=== PATIENT | male | born 1945 | race Caucasian/White ===

== ENCOUNTER → 2019-04-17 09:53 | Outpatient (CLI) | payer MEDICARE, OTHER, SELFPAY ==
[2019-04-17 10:48] LABS: Add Manual Diff / Slide Review NO; Basophils Absolute Auto 0 /uL (0-100); Basophils Percent Auto 0.7 % (0-2); Eosinophils Absolute Auto 100 /uL (0-450); Eosinophils Percent Auto 1.3 % (2-4); Hematocrit 45.6 % (41-53); Hemoglobin 15.2 g/dL (13.5-17.5); Lymphocytes Absolute Auto 1800 /uL (1100-4500); Lymphocytes Percent Auto 31.5 % (25-40); Mean Corpuscular HGB Conc 33.5 % (30-36); Mean Corpuscular Hemoglobin 30.8 PG (26-34); Mean Corpuscular Volume 91.9 fL (80-100); Monocytes Absolute Auto 600 /uL (0-900); Monocytes Percent Auto 10.2 % (3-14); Neutrophils Absolute Auto 3200 /uL (1500-7000); Neutrophils Percent Auto 56.3 % (50-75); Platelet Count 237 X10^3/uL (150-400); Red Blood Cell Count 4.95 X10^6/uL (4.5-5.9); Red Cell Distribution Width 13.8 % (11.6-14.8); White Blood Cell Count 5.7 X10^3/uL (4.5-11.0)
[2019-04-17 11:46] LABS: Alanine Aminotransferase 32 IU/L (21-72); Albumin 4.4 g/dL (3.5-5.0); Albumin Globulin Ratio 1.3 (1.0-2.8); Alkaline Phosphatase 53 U/L (38-126); Aspartate Aminotransferase 29 IU/L (17-59); BUN Creatinine Ratio 32.9 (6-22); Bilirubin Total 0.6 mg/dL (0.2-1.3); Blood Urea Nitrogen 23 mg/dL (9-20); Carbon Dioxide 32 mmol/L (22-32); Chloride 98 mmol/L (98-107); Cholesterol 157 mg/dL (140-199); Estimated Glomerular Filt Rate > 60.0 mL/min (>60); Globulin 3.5 g/dL (1.7-4.1); Glucose 97 mg/dL (80-110); HDL Cholesterol 39 mg/dL (40-60); HEMOLYSIS < 15 (0-50); LDL Cholesterol Calculated 104 mg/dL (<100); Potassium 4.6 mmol/L (3.4-5.1); Sodium 139 mmol/L (137-145); Total Protein 7.9 g/dL (6.3-8.2); Triglycerides 72 mg/dL (35-150)
[2019-04-17 12:09] LABS: Thyroid Stimulating Hormone 2.17 uIU/mL (0.47-4.68)
[2019-04-17 12:13] LABS: Prostate Specific Antigen Scrn 1.48 ng/mL (0.1-4.0)
== END ==
PROVIDERS: PCP Family Medicine; Visit Provider Family Medicine
DX: E78.2 Mixed hyperlipidemia (principal); Z12.5 Encounter for screening for malignant neoplasm of prostate
CPT/HCPCS: 36415; 80053; 80061; 84443; 85025; G0103

== ENCOUNTER → 2020-12-19 11:22 | Outpatient (CLI) | payer MEDICARE, OTHER, SELFPAY ==
[2020-12-19 11:52] LABS: Add Manual Diff / Slide Review NO; Basophils Absolute Auto 0 /uL (0-100); Basophils Percent Auto 0.6 % (0-2); Eosinophils Absolute Auto 100 /uL (0-450); Eosinophils Percent Auto 1.3 % (2-4); Hematocrit 42.8 % (41-53); Hemoglobin 14.5 g/dL (13.5-17.5); Lymphocytes Absolute Auto 1800 /uL (1100-4500); Lymphocytes Percent Auto 27.7 % (25-40); Mean Corpuscular HGB Conc 33.9 % (30-36); Mean Corpuscular Hemoglobin 30.9 PG (26-34); Mean Corpuscular Volume 91.1 fL (80-100); Monocytes Absolute Auto 600 /uL (0-900); Monocytes Percent Auto 9.8 % (3-14); Neutrophils Absolute Auto 3900 /uL (1500-7000); Neutrophils Percent Auto 60.6 % (50-75); Platelet Count 253 X10^3/uL (150-400); Red Blood Cell Count 4.69 X10^6/uL (4.5-5.9); White Blood Cell Count 6.5 X10^3/uL (4.5-11.0)
[2020-12-19 12:06] LABS: Alanine Aminotransferase 24 IU/L (<50); Albumin 4.2 g/dL (3.5-5.0); Albumin Globulin Ratio 1.4 (1.0-2.8); Alkaline Phosphatase 51 U/L (38-126); Aspartate Aminotransferase 27 IU/L (17-59); BUN Creatinine Ratio 27.8 (6-22); Bilirubin Total 0.3 mg/dL (0.2-1.3); Blood Urea Nitrogen 20 mg/dL (9-20); Carbon Dioxide 33 mmol/L (22-32); Chloride 99 mmol/L (98-107); Cholesterol 158 mg/dL (140-199); Estimated Glomerular Filt Rate > 60.0 mL/min (>60); Globulin 2.9 g/dL (1.7-4.1); Glucose 98 mg/dL (80-110); HDL Cholesterol 40 mg/dL (40-60); LDL Cholesterol Calculated 105 mg/dL (<100); Potassium 4.3 mmol/L (3.4-5.1); Sodium 139 mmol/L (137-145); Total Protein 7.1 g/dL (6.3-8.2); Triglycerides 64 mg/dL (35-150)
[2020-12-19 12:08] LABS: Creatinine Urine Random 73.4 mg/dL
[2020-12-19 12:34] LABS: Microalbumin Urine Random < 0.6 mg/dL (0-1.6)
[2020-12-19 12:52] LABS: HEMOLYSIS < 15 (0-50)
== END ==
PROVIDERS: PCP Family Medicine; Referring Provider Family Medicine; Visit Provider Family Medicine
DX: E78.2 Mixed hyperlipidemia (principal); I10 Essential (primary) hypertension; Z12.5 Encounter for screening for malignant neoplasm of prostate
CPT/HCPCS: 36415; 80053; 80061; 82043; 82570; 85025; G0103

== ENCOUNTER → 2022-08-19 09:06 | Outpatient (CLI) | payer MEDICARE, OTHER, SELFPAY ==
[2022-08-19 10:07] LABS: Add Manual Diff / Slide Review NO; Basophils Absolute Auto 0 /uL (0-100); Basophils Percent Auto 0.6 % (0-2); Eosinophils Absolute Auto 100 /uL (0-450); Hematocrit 42.9 % (41-53); Hemoglobin 14.4 g/dL (13.5-17.5); Lymphocytes Absolute Auto 1900 /uL (1100-4500); Lymphocytes Percent Auto 29.3 % (25-40); Mean Corpuscular HGB Conc 33.6 % (30-36); Mean Corpuscular Hemoglobin 30.5 PG (26-34); Mean Corpuscular Volume 90.7 fL (80-100); Monocytes Absolute Auto 700 /uL (0-900); Monocytes Percent Auto 10.4 % (3-14); Neutrophils Absolute Auto 3700 /uL (1500-7000); Neutrophils Percent Auto 58.7 % (50-75); Platelet Count 263 X10^3/uL (150-400); Red Blood Cell Count 4.72 X10^6/uL (4.5-5.9); Red Cell Distribution Width 13.7 % (11.6-14.8); White Blood Cell Count 6.3 X10^3/uL (4.5-11.0)
[2022-08-19 10:38] LABS: Creatinine Urine Random 75.2 mg/dL
[2022-08-19 10:39] LABS: Alanine Aminotransferase 30 IU/L (<50); Albumin 4.4 g/dL (3.5-5.0); Albumin Globulin Ratio 1.4 (1.0-2.8); Alkaline Phosphatase 72 U/L (38-126); Aspartate Aminotransferase 32 IU/L (17-59); Bilirubin Total 0.7 mg/dL (0.2-1.3); Blood Urea Nitrogen 24 mg/dL (9-20); Calcium 9.6 mg/dL (8.4-10.2); Carbon Dioxide 27 mmol/L (22-32); Chloride 97 mmol/L (98-107); Cholesterol 163 mg/dL (140-199); Estimated Glomerular Filt Rate > 60 mL/min (>60); Globulin 3.2 g/dL (1.7-4.1); Glucose 92 mg/dL (80-110); HDL Cholesterol 40 mg/dL (40-60); HEMOLYSIS < 15 (0-50); LDL Cholesterol Calculated 112 mg/dL (<100); Potassium 4.1 mmol/L (3.4-5.1); Sodium 136 mmol/L (137-145); Total Protein 7.6 g/dL (6.3-8.2); Triglycerides 57 mg/dL (35-150)
[2022-08-19 10:40] LABS: Microalbumin Urine Random < 0.6 mg/dL (0-1.6)
== END ==
PROVIDERS: PCP Family Medicine; Referring Provider Family Medicine; Visit Provider Family Medicine
DX: E78.2 Mixed hyperlipidemia (principal); Z12.5 Encounter for screening for malignant neoplasm of prostate; I10 Essential (primary) hypertension
CPT/HCPCS: 36415; 80053; 80061; 82043; 82570; 84443; 85025; G0103

== ENCOUNTER → 2024-01-03 09:33 | Outpatient (CLI) | payer MEDICARE, OTHER, SELFPAY ==
[2024-01-03 10:25] LABS: Add Manual Diff / Slide Review NO; Basophils Absolute Auto 0 /uL (0-100); Basophils Percent Auto 0.5 % (0-2); Eosinophils Absolute Auto 100 /uL (0-450); Eosinophils Percent Auto 1.3 % (2-4); Hematocrit 41.9 % (41-53); Hemoglobin 14.4 g/dL (13.5-17.5); Lymphocytes Absolute Auto 1600 /uL (1100-4500); Lymphocytes Percent Auto 26.3 % (25-40); Mean Corpuscular HGB Conc 34.3 % (30-36); Mean Corpuscular Hemoglobin 31.1 PG (26-34); Mean Corpuscular Volume 90.7 fL (80-100); Monocytes Absolute Auto 600 /uL (0-900); Monocytes Percent Auto 9.6 % (3-14); Neutrophils Absolute Auto 3800 /uL (1500-7000); Neutrophils Percent Auto 62.3 % (50-75); Platelet Count 274 X10^3/uL (150-400); Red Blood Cell Count 4.62 X10^6/uL (4.5-5.9); White Blood Cell Count 6.1 X10^3/uL (4.5-11.0)
[2024-01-03 10:39] LABS: Alanine Aminotransferase 25 IU/L (<50); Albumin 4.4 g/dL (3.5-5.0); Albumin Globulin Ratio 1.5 (1.0-2.8); Alkaline Phosphatase 58 U/L (38-126); Aspartate Aminotransferase 28 IU/L (17-59); BUN Creatinine Ratio 25.6 (6-22); Bilirubin Total 0.7 mg/dL (0.2-1.3); Blood Urea Nitrogen 20 mg/dL (9-20); Calcium 9.4 mg/dL (8.4-10.2); Carbon Dioxide 32 mmol/L (22-32); Chloride 103 mmol/L (98-107); Cholesterol 144 mg/dL (140-199); Estimated Glomerular Filt Rate > 60 mL/min (>60); Globulin 2.9 g/dL (1.7-4.1); Glucose 100 mg/dL (80-110); HDL Cholesterol 34 mg/dL (40-60); HEMOLYSIS < 15 (0-50); LDL Cholesterol Calculated 95 mg/dL (<100); Potassium 4.1 mmol/L (3.4-5.1); Sodium 138 mmol/L (137-145); Total Protein 7.3 g/dL (6.3-8.2); Triglycerides 74 mg/dL (35-150)
[2024-01-03 11:08] LABS: Prostate Specific Antigen Scrn 1.89 ng/mL (0.1-4.0)
[2024-01-03 11:21] LABS: TSH w/ Reflex to FT4 1.63 uIU/mL (0.47-4.68)
[2024-01-03 12:07] LABS: Creatinine Urine Random 120.9 mg/dL
[2024-01-03 12:11] LABS: Microalbumin Urine Random < 0.6 mg/dL (0-1.6)
[2024-01-04 07:35] LABS: Apolipoprotein B 80 mg/dL (<90)
== END ==
PROVIDERS: PCP Family Medicine; Referring Provider Family Medicine; Visit Provider Family Medicine
DX: Z12.5 Encounter for screening for malignant neoplasm of prostate (principal); Z00.00 Encounter for general adult medical examination without abnormal findings; E78.2 Mixed hyperlipidemia; I10 Essential (primary) hypertension
CPT/HCPCS: 36415; 80053; 80061; 82043; 82172; 82570; 84443; 85025; G0103

== ENCOUNTER 2024-04-13 20:05 | Emergency (ER) | payer MEDICARE, OTHER, SELFPAY ==
[2024-04-13] VITALS (7 sets, daily range): BP systolic 119–129; BP diastolic 68–81; PULSE 55–86; RESP 14–18; TEMP 36.4–36.5; O2SAT 94–95; BMI 26.7
--- NOTE | 2024-04-13 20:23 | PC.NURSE ---
Used restroom while in waiting room, and sat on toilet after due to not feeling well. Pt states that he was not feeling well.
[2024-04-13 20:46] LABS: Add Manual Diff / Slide Review NO; Basophils Absolute Auto 0 /uL (0-100); Basophils Percent Auto 0.6 % (0-2); Eosinophils Absolute Auto 100 /uL (0-450); Eosinophils Percent Auto 1.9 % (2-4); Hematocrit 41.8 % (41-53); Hemoglobin 14.2 g/dL (13.5-17.5); Lymphocytes Absolute Auto 2400 /uL (1100-4500); Lymphocytes Percent Auto 34.9 % (25-40); Mean Corpuscular Hemoglobin 31.4 PG (26-34); Mean Corpuscular Volume 92.4 fL (80-100); Monocytes Absolute Auto 800 /uL (0-900); Monocytes Percent Auto 10.7 % (3-14); Neutrophils Absolute Auto 3600 /uL (1500-7000); Neutrophils Percent Auto 51.9 % (50-75); Platelet Count 262 X10^3/uL (150-400); Red Blood Cell Count 4.52 X10^6/uL (4.5-5.9); Red Cell Distribution Width 13.4 % (11.6-14.8)
--- NOTE | 2024-04-13 20:50 | ED.NAVMDI ---
HPI - Nausea/Vomiting/Diarrhea General Chief complaint: Nausea/Vomiting/Diarrhea Stated complaint: V/trouble walking Time Seen by Provider: 04/13/24 20:31 Source: patient Mode of arrival: Ambulatory History of Present Illness HPI Narrative: Patient is a 78-year-old male who came in for evaluation of multiple episodes of vomiting, generally not feeling very well and trouble walking secondary to some lightheadedness. Patient states he was in his normal state of health. He was with his waiting in the line in order to get on a [place] to go back to the [place] where they live when he suddenly stated that he was not feeling very well. He has vomited multiple times. He has had a bowel movement since the symptoms started but he stated that it was not particularly soft his last episode of vomiting was in the waiting room. We are unsure but potentially had either a syncopal or presyncopal episode while sitting on the toilet in the waiting room. At the time I evaluated the patient he stated that he was actually feeling much better. Denies any pain. Denies any acute issues with vomiting. No fevers. He did go out to eat this evening. He was with his who ate the same thing that he ate and is not having any symptoms. Related Data Home Medications Medication Instructions Recorded Confirmed Calcium Carbonate/Vitamin D 1 cap PO Q DAY ##0 01/18/12 01/03/24 (#CALCIUM) HOMEOPATHIC SUBSTANCE (SAW 1 cap PO Q DAY ##0 01/18/12 01/03/24 PALMETTO) MULTIVITAMIN (#MULTIPLE VITAMINS) 1 cap PO Q DAY ##0 01/18/12 01/03/24 ASPIRIN (Aspirin) 81 mg PO TID ##0 09/14/12 01/03/24 CHOLECALCIFEROL (VITAMIN D3) 1,000 units PO QDAY ##0 09/14/12 01/03/24 (VITAMIN D3) VITAMIN E 1,000 units PO QDAY ##0 09/14/12 01/03/24 ascorbic acid (vitamin C) 500 mg 500 mg PO QDAY ##0 09/14/12 01/03/24 tablet Previous Rx's Medication Instructions Recorded hydrochlorothiazide 25 mg tablet See Rx Instructions .Route 09/22/23 .COMPLEX #90 tabs atorvastatin 20 mg tablet See Rx Instructions .Route 01/03/24 .COMPLEX #90 tabs lisinopril 10 mg tablet See Rx Instructions .Route 01/03/24 .COMPLEX #90 tabs Allergies Allergy/AdvReac Type Severity Reaction Status Date / Time No Known Drug Allergies Allergy Unverified 01/03/24 08:43 Review of Systems Review of Systems Narrative: See HPI Patient History Surgical History (Updated 01/17/18 @ 05:17 by Conversion Provider) Status post hernia repair Status post hernia repair Social History Smoking Status: Never smoker Smoking Status: Never smoker Exam Initial Vital Signs Initial Vital Signs: Vital Signs Temperature 97.6 F 04/13/24 20:22 Pulse Rate 56 L 04/13/24 20:22 Respiratory Rate 15 04/13/24 20:22 Blood Pressure 128/77 04/13/24 20:22 Pulse Oximetry 94 04/13/24 20:22 Oxygen Delivery Method Room Air 04/13/24 20:22 HENMT Head: normal to inspection and normocephalic Resp Effort & Inspection: normal respiratory effort Auscultation: clear to auscultation bilaterally Cardio Rate: regular rate Rhythm: regular rhythm GI Inspection: normal to inspection and non-distended Palpation: soft, No firm, No guarding and No tender Skin General: no rashes or lesions noted Neuro General: patient alert, patient awake, patient oriented x3 and moves all extremities Extrem General: normal to inspection and capillary refill normal Course Orders Ordered: ED Orders 04/13/24 20:35 Complete Blood Count AUTO DIFF Stat Comprehensive Metabolic Panel Stat Lipase Stat Troponin & CK Cardiac Panel Stat 04/13/24 20:39 EKG-12 Lead Stat Discontinued Medications Sodium Chloride (Normal Saline 0.9%) 1,000 mls @ 1,000 mls/hr IV BOLUS ONE Stop: 04/13/24 21:50 Last Infusion: 04/13/24 22:01 Dose: Infused Documented By: Admin: 04/13/24 20:59 Dose: 1,000 mls/hr Documented By: WERO Ondansetron HCl (Ondansetron 4 Mg/2 Ml Inj) 4 mg IV NOW ONE Stop: 04/13/24 20:52 Last Admin: 04/13/24 20:59 Dose: 4 mg Documented By: WERO Ondansetron HCl (Ondansetron 4 Mg Odt Prepack) 1 bottle MISC DIRECTED ONE Stop: 04/13/24 22:31 Last Admin: 04/13/24 22:37 Dose: 1 bottle Documented By: ANDERS Vital Signs Vital signs: Vital Signs - 8 hr 04/13/24 20:22 04/13/24 20:54 04/13/24 20:55 Temperature 97.6 F Pulse Rate 56 L 56 L Respiratory Rate 15 Blood Pressure 128/77 125/81 Pulse Oximetry 94 94 Oxygen Delivery Method Room Air 04/13/24 20:55 04/13/24 21:00 04/13/24 21:00 Temperature Pulse Rate 57 L 55 L Respiratory Rate Blood Pressure 119/77 Pulse Oximetry 95 94 Oxygen Delivery Method 04/13/24 21:30 04/13/24 21:30 04/13/24 22:00 Temperature Pulse Rate 60 65 Respiratory Rate 14 14 Blood Pressure 129/76 Pulse Oximetry 94 94 Oxygen Delivery Method Room Air 04/13/24 22:00 04/13/24 22:40 Temperature 97.7 F Pulse Rate 86 Respiratory Rate 18 Blood Pressure 120/72 122/68 Pulse Oximetry 95 Oxygen Delivery Method Room Air MDM - Nausea/Vomiting/Diarrhea Lab Data Attestation: I reviewed the patient's lab results. 04/13/24 20:35 04/13/24 20:35 Labs: Lab Results 04/13/24 Range/Units 20:35 WBC 7.0 (4.5-11.0) X10^3/uL RBC 4.52 (4.5-5.9) X10^6/uL Hgb 14.2 (13.5-17.5) g/dL Hct 41.8 (41-53) % MCV 92.4 (80-100) fL MCH 31.4 (26-34) PG MCHC 34.0 (30-36) % RDW 13.4 (11.6-14.8) % Plt Count 262 (150-400) X10^3/uL Neut % (Auto) 51.9 (50-75) % Lymph % (Auto) 34.9 (25-40) % [place] % (Auto) 10.7 (3-14) % Eos % (Auto) 1.9 L (2-4) % Baso % (Auto) 0.6 (0-2) % Neut # (Auto) 3600 (5074-9643) /uL Lymph # (Auto) 2400 (8768-3288) /uL [place] # (Auto) 800 (0-900) /uL Eos # (Auto) 100 (0-450) /uL Baso # (Auto) 0 (0-100) /uL Sodium 137 (137-145) mmol/L Potassium 3.6 (3.4-5.1) mmol/L Chloride 105 (98-107) mmol/L Carbon Dioxide 26 (22-32) mmol/L BUN 28 H (9-20) mg/dL Creatinine 0.78 (0.66-1.25) mg/dL Estimated GFR > 60 (>60) mL/min BUN/Creatinine Ratio 35.9 H (6-22) Glucose 129 H (80-110) mg/dL Calcium 8.8 (8.4-10.2) mg/dL Total Bilirubin 0.6 (0.2-1.3) mg/dL AST 31 (17-59) IU/L ALT 25 (<50) IU/L Alkaline Phosphatase 54 (38-126) U/L Total Creatine Kinase 140 (55-170) U/L Troponin I < 0.012 (0.01-0.034) ng/mL Total Protein 7.4 (6.3-8.2) g/dL Albumin 4.1 (3.5-5.0) g/dL Globulin 3.3 (1.7-4.1) g/dL Albumin/Globulin Ratio 1.2 (1.0-2.8) Lipase 96 (23-300) U/L ECG Data Attestation: I personally reviewed and interpreted this ECG as follows: Interpretation: Sinus bradycardia Ventricular rate of 57 First-degree AV block OH interval 210 milliseconds Normal axis Nonspecific ST T wave changes MDM Narrative Medical decision making narrative: Labs here in the emergency department are unremarkable. EKG is nonischemic. After period of observation patient stated that he was feeling much better. He was able to tolerate oral intake. Ambulated around the department without any lightheadedness. Patient stated that he would like to be discharged home. This isn't we can hold on radiologic studies for now. He was given return precautions follow-up instructions. He was expressed understanding and agreement. Discharge Plan Departure Patient Disposition: Home Clinical Impression: Vomiting Instructions: DI for Vomiting -- Adult Activity Restrictions/Additional Instructions: Continue to take all of your medications as directed. I would not be surprised if over the next 24-48 hours you do develop some diarrhea. If this happens just increase your fluid intake. He was a nausea medication as needed. I do recommend a bland diet. Contact your primary provider for follow-up. Prescriptions: No Action MULTIVITAMIN (#MULTIPLE VITAMINS) 1 cap PO Q DAY Qty: 0 HOMEOPATHIC SUBSTANCE (SAW PALMETTO) 1 cap PO Q DAY Qty: 0 Calcium Carbonate/Vitamin D (#CALCIUM) 1 cap PO Q DAY Qty: 0 ASPIRIN (Aspirin) 81 mg PO TID Qty: 0 ascorbic acid (vitamin C) 500 MG tablet 500 mg PO QDAY Qty: 0 CHOLECALCIFEROL (VITAMIN D3) (VITAMIN D3) 1,000 units PO QDAY Qty: 0 VITAMIN E 1,000 units PO QDAY Qty: 0 hydrochlorothiazide 25 mg tablet See Rx Instructions .ROUTE .COMPLEX Qty: 90 3RF Dose Instruction: TAKE ONE TABLET BY MOUTH ONE TIME DAILY Rx Instructions: TAKE ONE TABLET BY MOUTH ONE TIME DAILY atorvastatin 20 mg tablet See Rx Instructions .ROUTE .COMPLEX Qty: 90 3RF Dose Instruction: TAKE ONE TABLET BY MOUTH NIGHTLY AT BEDTIME Rx Instructions: TAKE ONE TABLET BY MOUTH NIGHTLY AT BEDTIME lisinopril 10 mg tablet See Rx Instructions .ROUTE .COMPLEX Qty: 90 3RF Dose Instruction: TAKE ONE TABLET BY MOUTH ONE TIME DAILY. due for appointment Rx Instructions: take 1 tab daily Referrals: Francisco Rivera MD [Primary Care Provider] - Stand Alone Forms: Patient Portal/API
[2024-04-13 20:55] LABS: Alanine Aminotransferase 25 IU/L (<50); Albumin 4.1 g/dL (3.5-5.0); Albumin Globulin Ratio 1.2 (1.0-2.8); Alkaline Phosphatase 54 U/L (38-126); Aspartate Aminotransferase 31 IU/L (17-59); BUN Creatinine Ratio 35.9 (6-22); Bilirubin Total 0.6 mg/dL (0.2-1.3); Blood Urea Nitrogen 28 mg/dL (9-20); Calcium 8.8 mg/dL (8.4-10.2); Carbon Dioxide 26 mmol/L (22-32); Chloride 105 mmol/L (98-107); Creatine Kinase 140 U/L (55-170); Estimated Glomerular Filt Rate > 60 mL/min (>60); Globulin 3.3 g/dL (1.7-4.1); Glucose 129 mg/dL (80-110); HEMOLYSIS 18 (0-50); Lipase 96 U/L (23-300); Potassium 3.6 mmol/L (3.4-5.1); Sodium 137 mmol/L (137-145); Total Protein 7.4 g/dL (6.3-8.2)
[2024-04-13] MEDS: ONDANSETRON 4 MG/2 ML INJ IV (20:59)
[2024-04-13] MEDS: SODIUM CHLORIDE 0.9% 1,000 ML 1000 ML IV (20:59)
[2024-04-13 21:06] LABS: Troponin I < 0.012 ng/mL (0.01-0.034)
--- NOTE | 2024-04-13 21:15 | PC.NURSE ---
patient feels better while laying down after vomiting and weakness episode. He is currently getting IV fluids and resting with at bedside
--- NOTE | 2024-04-13 21:23 | EKG_ITS ---
[address] [address] Test Date: 2024-04-13 Pat Name: Hao Pascual Department: [facility] Room: Gender: Male International [employer] Intern: : 1945 Requested By: Order Number: [id number] Reading MD: Miah Maldonado Measurements Intervals [place] Rate: 57 P: 49 TN: 210 QRS: 57 QRSD: 110 T: -5 QT: 484 QTc: 471 Interpretive Statements Sinus bradycardia with 1st degree AV block Electronically Signed On 04-16-2024 8:44:37 PDT by Miah Maldonado
[2024-04-13] MEDS: ONDANSETRON 4 MG ODT PREPACK 1 BOTTLE MISC (22:37)
== END 2024-04-13 22:41 | disposition home or self-care (01) ==
PROVIDERS: Emergency Provider Emergency Medicine; PCP Family Medicine
DX: R11.10 Vomiting, unspecified (principal); R00.1 Bradycardia, unspecified; I44.0 Atrioventricular block, first degree; R42 Dizziness and giddiness
CPT/HCPCS: 36415; 80053; 82550; 83690; 84484; 85025; 93005; 96361; 96374; 99284; J2405

== ENCOUNTER → 2025-01-08 07:09 | Outpatient (CLI) | payer MEDICARE, OTHER, SELFPAY ==
[2025-01-08 07:52] LABS: Add Manual Diff / Slide Review NO; Basophils Absolute Auto 0 /uL (0-100); Basophils Percent Auto 0.8 % (0-2); Eosinophils Absolute Auto 100 /uL (0-450); Eosinophils Percent Auto 2.5 % (2-4); Hematocrit 43.2 % (41-53); Hemoglobin 14.7 g/dL (13.5-17.5); Lymphocytes Absolute Auto 1300 /uL (1100-4500); Lymphocytes Percent Auto 26.4 % (25-40); Mean Corpuscular HGB Conc 33.9 % (30-36); Mean Corpuscular Hemoglobin 31.3 PG (26-34); Mean Corpuscular Volume 92.3 fL (80-100); Monocytes Absolute Auto 500 /uL (0-900); Monocytes Percent Auto 9.6 % (3-14); Neutrophils Absolute Auto 3000 /uL (1500-7000); Neutrophils Percent Auto 60.7 % (50-75); Platelet Count 232 X10^3/uL (150-400); Red Blood Cell Count 4.68 X10^6/uL (4.5-5.9); Red Cell Distribution Width 13.6 % (11.6-14.8)
[2025-01-08 08:17] LABS: Alanine Aminotransferase 31 IU/L (<50); Albumin 4.2 g/dL (3.5-5.0); Albumin Globulin Ratio 1.5 (1.0-2.8); Alkaline Phosphatase 56 U/L (38-126); Aspartate Aminotransferase 33 IU/L (17-59); BUN Creatinine Ratio 26.2 (6-22); Bilirubin Total 0.6 mg/dL (0.2-1.3); Blood Urea Nitrogen 22 mg/dL (9-20); Calcium 9.4 mg/dL (8.4-10.2); Carbon Dioxide 31 mmol/L (22-32); Chloride 99 mmol/L (98-107); Cholesterol 155 mg/dL (140-199); Estimated Glomerular Filt Rate > 60 mL/min (>60); Globulin 2.8 g/dL (1.7-4.1); Glucose 96 mg/dL (80-110); HDL Cholesterol 40 mg/dL (40-60); HEMOLYSIS < 15 (0-50); LDL Cholesterol Calculated 104 mg/dL (<100); Potassium 3.7 mmol/L (3.4-5.1); Sodium 138 mmol/L (137-145); Triglycerides 56 mg/dL (35-150)
[2025-01-08 08:43] LABS: Creatinine Urine Random 67.78 mg/dL
[2025-01-08 08:46] LABS: Prostate Specific Antigen Scrn 1.96 ng/mL (0.1-4.0); TSH w/ Reflex to FT4 3.23 uIU/mL (0.47-4.68)
[2025-01-08 08:48] LABS: Microalbumin Urine Random < 0.6 mg/dL (0-1.6)
[2025-01-09 04:08] LABS: Apolipoprotein B 78 mg/dL (<90)
== END ==
PROVIDERS: PCP Family Medicine; Referring Provider Family Medicine; Visit Provider Family Medicine
DX: Z00.00 Encounter for general adult medical examination without abnormal findings (principal); I10 Essential (primary) hypertension; Z12.5 Encounter for screening for malignant neoplasm of prostate; E78.2 Mixed hyperlipidemia
CPT/HCPCS: 36415; 80053; 80061; 82043; 82172; 82570; 84443; 85025; G0103